=== PATIENT | female | born 1950 | race Caucasian/White ===

== ENCOUNTER → 2017-01-11 | Outpatient (CLI) | payer MEDICARE, OTHER | LOC: HEART 5 07:30 | DX: R01.1 Cardiac murmur, unspecified (principal); R94.31 Abnormal electrocardiogram [ECG] [EKG]; I10 Essential (primary) hypertension; R06.00 Dyspnea, unspecified; I08.1 Rheumatic disorders of both mitral and tricuspid valves; I34.8 Other nonrheumatic mitral valve disorders | CPT/HCPCS: 78452; 93306; A9502; J2785 ==

== ENCOUNTER → 2020-09-08 | Outpatient (CLI) | payer MEDICARE, OTHER ==
[~2020-09-08] MED LIST: ALBUTEROL2.5 MG/3 M INH; ALLEGRA ALLERG180 MG PO; EXCEDRIN EXTRA1 EACH PO; FLONASE 0.05% N16 GM; LOPRESSOR100 MG PO; NEURONTIN400 MG PO; NORVASC5 MG PO; PRAVACHOL20 MG PO; SANTYL OINT 3030 GM TP; TYLENOL 8 HOUR650 MG PO; VENTOLIN HFA 66.7 GM INH; XARELTO2.5 MG PO
== END ==
LOC: WCC 10:00
PROC: 0KBW0ZZ Excision of Left Foot Muscle, Open Approach (ICD-10-PCS; principal; 2020-09-08)
DX: I70.245 Atherosclerosis of native arteries of left leg with ulceration of other part of foot (principal); L97.525 Non-pressure chronic ulcer of other part of left foot with muscle involvement without evidence of necrosis; M62.262 Nontraumatic ischemic infarction of muscle, left lower leg; L30.9 Dermatitis, unspecified; I10 Essential (primary) hypertension; Z72.0 Tobacco use; Z88.5 Allergy status to narcotic agent

== ENCOUNTER → 2020-09-29 | Outpatient (CLI) | payer MEDICARE, OTHER | LOC: WCC 10:30 | PROC: 0KBW0ZZ Excision of Left Foot Muscle, Open Approach (ICD-10-PCS; principal; 2020-09-29) | DX: I70.245 Atherosclerosis of native arteries of left leg with ulceration of other part of foot (principal); L97.526 Non-pressure chronic ulcer of other part of left foot with bone involvement without evidence of necrosis; L30.9 Dermatitis, unspecified; I10 Essential (primary) hypertension; Z72.0 Tobacco use; M62.262 Nontraumatic ischemic infarction of muscle, left lower leg; Z88.5 Allergy status to narcotic agent; Z79.899 Other long term (current) drug therapy | CPT/HCPCS: 87070; 87205; Q4133 ==

== ENCOUNTER → 2020-10-06 | Outpatient (CLI) | payer MEDICARE, OTHER | LOC: WCC 10:30 | PROC: 0KBW0ZZ Excision of Left Foot Muscle, Open Approach (ICD-10-PCS; principal; 2020-10-06) | DX: I70.245 Atherosclerosis of native arteries of left leg with ulceration of other part of foot (principal); L97.525 Non-pressure chronic ulcer of other part of left foot with muscle involvement without evidence of necrosis; L30.9 Dermatitis, unspecified; I10 Essential (primary) hypertension; M62.262 Nontraumatic ischemic infarction of muscle, left lower leg; Z72.0 Tobacco use | CPT/HCPCS: Q4133 ==

== ENCOUNTER → 2020-10-13 | Outpatient (CLI) | payer MEDICARE, OTHER | LOC: WCC 10:11 | PROC: 0JBR0ZZ Excision of Left Foot Subcutaneous Tissue and Fascia, Open Approach (ICD-10-PCS; principal; 2020-10-13) | DX: L97.525 Non-pressure chronic ulcer of other part of left foot with muscle involvement without evidence of necrosis (principal); Z88.5 Allergy status to narcotic agent; Z79.01 Long term (current) use of anticoagulants; Z79.899 Other long term (current) drug therapy ==

== ENCOUNTER → 2020-10-20 | Outpatient (CLI) | payer MEDICARE, OTHER | LOC: WCC 10:30 | DX: I70.245 Atherosclerosis of native arteries of left leg with ulceration of other part of foot (principal); L30.9 Dermatitis, unspecified; I10 Essential (primary) hypertension; M62.262 Nontraumatic ischemic infarction of muscle, left lower leg | CPT/HCPCS: G0463 ==

== ENCOUNTER → 2020-11-05 | Outpatient (CLI) | payer MEDICARE, OTHER | LOC: WCC 10:51 | DX: M62.262 Nontraumatic ischemic infarction of muscle, left lower leg (principal); I70.245 Atherosclerosis of native arteries of left leg with ulceration of other part of foot; L30.9 Dermatitis, unspecified; I10 Essential (primary) hypertension; Z72.0 Tobacco use | CPT/HCPCS: G0463 ==

== ENCOUNTER → 2020-12-12 | Outpatient (CLI) | payer MEDICARE, OTHER | LOC: KOH-I 11:26 | DX: Z87.891 Personal history of nicotine dependence (principal); R91.1 Solitary pulmonary nodule; I25.10 Atherosclerotic heart disease of native coronary artery without angina pectoris | CPT/HCPCS: 71271 ==

== ENCOUNTER → 2021-03-18 | Outpatient (CLI) | payer MEDICARE, OTHER | LOC: ECHO 09:00 | DX: I08.1 Rheumatic disorders of both mitral and tricuspid valves (principal); R01.1 Cardiac murmur, unspecified; I48.0 Paroxysmal atrial fibrillation | CPT/HCPCS: ECHO; 93306 ==

== ENCOUNTER → 2021-12-22 | Outpatient (CLI) | payer OTHER | LOC: KOH-I 13:55 | DX: M54.50 Low back pain, unspecified (principal); M47.816 Spondylosis without myelopathy or radiculopathy, lumbar region | CPT/HCPCS: 72100 ==

== ENCOUNTER → 2022-01-13 | Outpatient (CLI) | payer OTHER | LOC: KOH-I 10:46 | DX: Z87.891 Personal history of nicotine dependence (principal); R91.8 Other nonspecific abnormal finding of lung field; I71.2 Thoracic aortic aneurysm, without rupture | CPT/HCPCS: 71271 ==

== ENCOUNTER → 2022-03-09 | Outpatient (CLI) | payer OTHER | LOC: KOH-I 14:18 | DX: R06.2 Wheezing (principal) | CPT/HCPCS: 71046 ==

== ENCOUNTER → 2022-05-26 | Outpatient (CLI) | payer OTHER | LOC: KOH-I 13:21 | DX: I73.9 Peripheral vascular disease, unspecified (principal) | CPT/HCPCS: 93925 ==

== ENCOUNTER → 2022-06-10 | Outpatient (CLI) | payer OTHER | LOC: CT 14:19 | DX: I73.9 Peripheral vascular disease, unspecified (principal); I70.92 Chronic total occlusion of artery of the extremities; I71.2 Thoracic aortic aneurysm, without rupture | CPT/HCPCS: 75635; Q9967 ==

== ENCOUNTER → 2022-06-22 | Outpatient (CLI) | payer OTHER ==
[2022-06-22 14:20] LABS: HEMOGLOBIN 15.5 gm/dl (12.3-15.3); RED BLOOD COUNT 4.87 M/UL (4.00-5.10); WHITE BLOOD COUNT 11.5 K/UL (4.5-11.0)
[2022-06-22 14:40] LABS: BUN/CREATININE RATIO 21 (0-10)
== END ==
LOC: LAB 12:13
DX: Z01.812 Encounter for preprocedural laboratory examination (principal); I73.9 Peripheral vascular disease, unspecified
CPT/HCPCS: 36415; 80053; 85025

== ENCOUNTER → 2022-07-13 | Outpatient (CLI) | payer OTHER | LOC: HEART 5 07:25 | DX: Z01.810 Encounter for preprocedural cardiovascular examination (principal); R94.31 Abnormal electrocardiogram [ECG] [EKG] | CPT/HCPCS: 78452; A9502; J2785 ==